=== PATIENT | male | born 1960 | race Caucasian/White ===

== ENCOUNTER 2021-11-02 23:12 | Emergency (ER) | payer SELFPAY ==
[2021-11-03] MEDS ORDERED: Ketorolac Tromethamine 30 MG/ML VIAL ONE (00:26)
[2021-11-03] MEDS ORDERED: Morphine 10 MG/ML VIAL ONE (00:27)
== END 2021-11-03 03:06 | disposition home or self-care (01) ==
LOC: CSHERS 23:12
DX: M54.12 Radiculopathy, cervical region (principal); I10 Essential (primary) hypertension; F17.210 Nicotine dependence, cigarettes, uncomplicated
CPT/HCPCS: 72125; 96372; J1885; J2270